=== PATIENT | male | born 1960 | race Caucasian/White ===

== ENCOUNTER 2016-12-21 00:21 | Emergency (ER) | payer OTHER ==
[~2016-12-21 00:21] MED LIST: BACO TOP; CLINDAMYCIN HC300 MG PO; HIBICLENS118 ML TOP; LAC PO; OSCD PO; PRI20 PO; THERAGRAN-M1 TA4 PO; TOR10 PO
[2016-12-21 02:52] LABS: PLATELET COUNT 254 x10^3mcL (130-400)
[2016-12-21 02:57] LABS: CALCIUM 8.9 mg/dL (8.5-10.1); CARBON DIOXIDE 26.1 mmol/L (21-32); CHLORIDE SERUM 102 mmol/L (98-107); CREATININE SERUM 0.8 mg/dL (0.7-1.3); GFR1 > 60 mL/min; GLUCOSE SERUM 105 mg/dL (74-106); POTASSIUM SERUM 3.8 mmol/L (3.5-5.1); SODIUM SERUM 136 mmol/L (136-145)
[2016-12-21 03:01] LABS: BASOPHIL % 2.7 % (0-2); RED CELL DISTRIBUTION WIDTH 14.7 % (11.5-14.5)
[2016-12-21 03:02] LABS: ALBUMIN 3.8 g/dL (3.4-5.0); ALKALINE PHOSPHATASE 69 U/L (46-116); ALT/SGPT 25 U/L (16-63); AST/SGOT 31 U/L (15-37); BILIRUBIN TOTAL 0.43 mg/dL (0.20-1.00); TOTAL PROTEIN, SERUM 7.9 g/dL (6.4-8.2)
[2016-12-21 04:57] VITALS: BP 131/91
== END 2016-12-21 04:57 | disposition home or self-care (01) ==
LOC: ED 00:21
PROVIDERS: Emergency Medicine
DX: G62.9 Polyneuropathy, unspecified (principal); Z88.0 Allergy status to penicillin; M00.9 Pyogenic arthritis, unspecified
CPT/HCPCS: J1170; Q0162